=== PATIENT | female | born 1990 ===

== ENCOUNTER → 2022-12-13 11:08 | Outpatient (CLI) | payer BC, SELFPAY ==
--- NOTE | ~2022-12-13 | US_ITS ---
EXAMINATION: US OB follow up DATE: 12/13/2022 12:12 INDICATION: Incomplete anatomic survey at outside hospital, second trimester TECHNIQUE: Real-time ultrasound of the pelvis was performed. The interpreting radiologist was not pre sent for the study. COMPARISON: None. FINDINGS: There is a single living fetus in vertex presentation. The placenta is anterior and 4.4 cm from the internal cervical os. The measured cervical length is 3.3 cm. cardiac activity and fet al movement are noted. heart rate is 139 beats per minute (bpm). The amniotic fluid index is lechuga bjectively normal. The spine, heart, and upper lip appear normal. The following biometric data were obtained: Biparietal diameter (BPD): 5.8 cm; head circumference (HC): 21.2 cm; abdominal circumference (AC): 18 .7 cm; femur length (FL): 4.0 cm. The femoral length to biparietal diameter ratio is greater than two standard deviations below the lexi n. These measurements are otherwise concordant. Estimated weight is 574 g +/- 86 g, which correlates with the 54th percentile when 04/11/2023 is used as estimated date of delivery. As single measurements, these parameters are each equal to the following estimated gestational ages w ith ranges of +/- 2 standard deviations: BPD: 23 weeks 5 days ( 22 weeks 0 days - 25 weeks 3 days). HC: 23 weeks 2 days ( 21 weeks 6 days - 24 weeks 5 days). AC: 23 weeks 3 days ( 21 weeks 3 days - 25 weeks 4 days). FL: 22 weeks 6 days ( 21 weeks 0 days - 24 weeks 4 days). estimated gestational age based solely on measurements from this exam is 23 weeks 2 days +/- 1 weeks 4 days. IMPRESSION: 1. Single living fetus in vertex presentation. 2. spine, heart, and upper lip appear normal. 3. Femoral length to biparietal diameter ratio greater than two standard deviations below the mean. 4. Estimated weight is 574 g +/- 86 g, which correlates with the 54th percentile when 04/11/2023 is used as estimated date of delivery. Reviewed, dictated and finalized at location [facility]. IMPRESSION: 1. Single living fetus in vertex presentation. 2. spine, heart, and upper lip appear normal. 3. Femoral length to biparietal diameter ratio greater than two standard deviat ions below the mean. 4. Estimated weight is 574 g +/- 86 g, which correlates with the 54th per centile when 04/11/2023 is used as estimated date of delivery.
== END ==
PROVIDERS: PCP Family Medicine; Visit Provider Family Medicine
DX: Z34.92 Encounter for supervision of normal pregnancy, unspecified, second trimester (principal); Z3A.23 23 weeks gestation of pregnancy
CPT/HCPCS: 76816